=== PATIENT | male | born 1965 | race Caucasian/White ===

== ENCOUNTER 2023-06-23 14:30 | Emergency (ER) | payer OTHER, SELFPAY ==
[2023-06-23 14:34] VITALS: BP 171/98
[2023-06-23 14:51] LABS: % Basophils 0.8 % (0-2); % Eosinophils 1.6 % (0-6); % Immature Granulocytes 0.2 % (0-0.5); % Lymphocytes 27.5 % (20.5-51.1); % Monocytes 5.7 % (1.7-9.3); % Neutrophils 64.2 % (42.2-75.2); Absolute Basophils 0.1 10^3/uL (0-0.2); Absolute Eosinophils 0.1 10^3/uL (0-0.7); Absolute Lymphocytes 1.7 10^3/uL (1.2-3.4); Absolute Monocytes 0.4 10^3/uL (0.1-0.6); Absolute Neutrophils 3.9 10^3/uL (1.4-6.5); Hematocrit 43.2 % (39.0-52.0); Mean Corp Hgb Conc. 34.7 g/dL (33.0-37.0); Mean Corpuscular Hgb 31.3 pg (27.0-31.0); Mean Platelet Volume 9.5 fL (7.4-10.4); Nucleated Red Blood Cells % 0 % (-); Platelet Count 198 10^3/uL (130-400); Red Cell Dist. Width 12.6 % (11.5-14.5); White Blood Cell Count 6.1 10^3/uL (4.8-10.8)
[2023-06-23 15:03] LABS: ALT (SGPT) 52 U/L (0-50); AST (SGOT) 117 U/L (17-59); Albumin 4.7 g/dl (3.5-5.0); Alkaline Phosphatase 56 U/L (38-126); Blood Urea Nitrogen 14 mg/dl (9-20); Calcium 9.3 mg/dl (8.4-10.2); Carbon Dioxide 20 mmol/L (22-30); Chloride 110 mmol/L (98-107); Glucose 109 mg/dl (70-99); Potassium 4.1 mmol/L (3.5-5.1); Sodium 137 mmol/L (135-145); Total Bilirubin 0.3 mg/dl (0.2-1.3); Total Protein 7.2 g/dl (6.3-8.2); eGFR > 60.00
[2023-06-23 15:15] LABS: Troponin I < 0.012 ng/ml
--- NOTE | 2023-06-23 15:51 | ED.GENMED ---
History of Present Illness
General
Chief Complaint: Chest Pain
Source: patient
Exam Limitations: none
Time Seen by Provider: 06/23/23 15:50
Nursing documentation reviewed up to this point in time: agreed with
Travel History
Have you had any contact with someone who has COVID-19?: No
Do you have any symptoms of coronavirus? Fever > 100 degrees, chills, cough, shortness of breath, sore throat, loss of taste or smell, muscle aches, or headache?: No
History of Present Illness
History of Present Illness:
57-year-old female with history of colon cancer with resection and colostomy 02/2020, otherwise no significant past medical history presents stating for the past 5 days he has had intermittent pain in the left arm and numbness in the 3 middle
fingers of his left hand. Today he noted pain in the left side of his neck. No recollection of overuse or injury.
Between 1 and 2 PM today while driving he felt left upper chest pressure and felt lightheaded to the point where he thought he might have to dross puller but did not. He has had several of these episodes.
He states he feels a little pressure in the left upper chest during this initial encounter, non radiating, not associated with left arm pain
Has had no N/V
His sister is at bedside and they both admit that he has been under a tremendous amount of stress from work the past few months.
He also states for the past month he has been short of breath on exertion such as going up a flight depths.
2 weeks ago he had pain just medial to his left shoulder blade, saw PCP at [facility] and had a chest x-ray which was normal.
His tennis court attendant is Dr. Chappell and he has seen him in the last 6 months with no issues.
Past History
Past History
ED Past Medical History: Cancer (colon CA)
ED Past Surgical History: Bowel resection
Social History
Tobacco: Non-smoker
Alcohol: None
Personal:
Living: with family
Employment: Employed
Family History
Family History: Other (Mother age 51 of lung CA Father alive had 4 bypass in his 60's Brother in mid 50's w VT then 2 subsequent VT's, heavy smoker. still alive)
Review of Systems
Review of Systems
Allergies reviewed?: Yes
All Other Systems: ROS reviewed and negative except as documented in HPI and ROS
Constitutional: Denies fever
Respiratory: Denies cough or trouble breathing (feels SOB climbing stairs past month)
Cardiac: Reports chest pain; Denies diaphoresis, palpitations or syncope
ABD/GI: Reports other (colostomy with no change in stools); Denies abdominal pain, nausea, diarrhea, bloody stools, black stools or anorexia
: Denies dysuria or difficulty voiding
Musculoskeletal: Reports neck pain (left neck pain noted yesterday); Denies edema or back pain
Skin: Reports no symptoms
Neurological: Reports no symptoms
Psychiatric: Reports anxiety (admits to being extremely stressed)
Phy Exam
Physical Exam
Physical Exam:
GENERAL: No acute distress. A&Ox3.
CONSTITUTIONAL: Afebrile.
EYES: clear, conjunctivae normal
Neck: Supple
ENMT: moist mucus membranes, Pharynx nl
RESPIRATORY: Regular respirations, nonlabored, lungs clear.
CARDIOVASCULAR: Regular rate and rhythm, no murmurs, no rubs.
GI: Soft, nontender, normal BS
MUSCULOSKELETAL: No spinal bony tenderness. Mild left lateral neck ST tenderness to palpation, full ROM. Immediately tender to palpate over the mid left trapezius muscle just medial to the scapula. This is a trigger point. Mild tenderness to
palpation of left forearm muscle, full ROM of LUE. Moves with ease. Well perfused.
SKIN: Warm, dry, pink
PSYCH: Normal mood and affect. Well kept, interactive and appropriate
NEUROLOGIC: Awake, alert and oriented. No focal neurological deficits. Strength equal throughout.
Scores
Heart Score for Chest Pain Patients
STEMI patient?: Not applicable
Course
Orders/Labs/Results
Orders:
Orders
06/23/23 14:31
EKG [Electrocardiogram (*1)] Urgent
Reason for Study: Chest Pain
EKG- Treatment ONCE
06/23/23 14:44
Complete Blood Count/With Diff Urgent
Comprehensive Metabolic Panel Urgent
Troponin I Urgent
06/23/23 16:17
Cervical Spine 4 or 5 Vw [CR Cervical Spine 4 Or 5 Vw] Urgent
Comment:
Reason For Exam: left neck pain with LUE radiculopathy
06/23/23 17:08
EKG [Electrocardiogram (*1)] Urgent
Reason for Study: Chest Pain
EKG- Treatment ONCE
06/23/23 18:18
Troponin I Urgent
06/23/23 19:10
Cyclobenzaprine HCl [Flexeril] 10 mg PO NOW STA
Abnormal Lab Results
06/23/23
14:44
MCH 31.3 H pg
(27.0-31.0)
Chloride 110 H mmol/L
(98-107)
Carbon Dioxide 20 L mmol/L
(22-30)
Glucose 109 H mg/dl
(70-99)
AST 117 H U/L
(17-59)
ALT 52 H U/L
(0-50)
06/23/23 14:44
06/23/23 14:44
Vital Signs
Initial and Last Documented VS:
Initial Vital Signs
Temp Pulse Resp BP Pulse Ox
98.0 F 77 18 171/98 98
06/23/23 14:34 06/23/23 14:34 06/23/23 14:34 06/23/23 14:34 06/23/23 14:34
Last Documented Vital Signs
Temp Pulse Resp BP Pulse Ox
98.0 F 59 16 145/92 98
06/23/23 14:34 06/23/23 19:00 06/23/23 19:00 06/23/23 19:00 06/23/23 14:34
MDM/Problems Addressed
Differential Diagnosis Includes:
Cervical radiculopathy left arm, cervical DJD
ACS, GERD, anxiety/stress, musculoskeletal
MDM/Problems Addressed:
57-year-old female with history of colon cancer with resection and colostomy 02/2020, otherwise no significant past medical history presents stating for the past 5 days he has had intermittent pain in the left arm and numbness in the 3 middle
fingers of his left hand. Today he noted pain in the left side of his neck. No recollection of overuse or injury.
Between 1 and 2 PM today while driving he felt left upper chest pressure and felt lightheaded to the point where he thought he might have to dross puller but did not. He has had several of these episodes.
He states he feels a little pressure in the left upper chest during this initial encounter, non radiating, not associated with left arm pain
Has had no N/V
His sister is at bedside and they both admit that he has been under a tremendous amount of stress from work the past few months.
He also states for the past month he has been short of breath on exertion such as going up a flight depths.
2 weeks ago he had pain just medial to his left shoulder blade, saw PCP at [facility] and had a chest x-ray which was normal.
His tennis court attendant is Dr. Chappell and he has seen him in the last 6 months with no issues.
1600 p.m.
EKG: NSR
CBC normal
CMP with no clinically significant abnormality
Troponin WNL
7:00 PM
Cervical spine radiology report read: IMPRESSION:
Mild multilevel degenerative changes of the cervical spine without evidence for acute fracture.
Final diagnosis: Left neck strain, cervical radiculopathy to left arm.
Trigger point left trapezius muscle.
Emotional stress
Prescription for Flexeril sent to his pharmacy.
*EKG
EKG Intrepretation Date: 06/23/23
Interpretation: normal
Rate: normal
Rhythm: sinus
[place]: normal axis
Interval: normal interval
QRS Pattern: normal QRS
Ischemia: no ischemia
*Critical Care Note
Total Time (30-74mins, 75-104mins- exclusive of procedures): Not Applicable
ED Attending Note
-
Portions of this chart may have been created with voice recognition software.� Occasional wrong word or��sound alike� substitutions may have occurred due to the inherent limitations of voice recognition software.
Discharge Plan
Departure
Patient Disposition: Home (Routine Discharge)
Date of Disposition: 06/23/23
Time of Disposition: 19:09
Patient with high blood pressure during this ER visit?: No
Condition: Good
Discharge Problem:
Stress, Atypical chest pain, Trigger point of left shoulder region, Cervical radiculopathy
Instructions: Chest Pain That Is Not Caused by the Heart (DC), Muscle Spasms (DC), Radiculopathy (DC), Relaxation Techniques, Stress
Prescriptions:
New
cyclobenzaprine 10 mg tablet
10 mg PO TID PRN (Reason: muscle tightness, pain) Qty: 30 0RF
Referrals:
Greg Silva MD [Family Provider] - As needed
Activity Restrictions/Additional Instructions:
As we discussed, I sent a prescription to your pharmacy for a muscle relaxant for your neck and upper back. It can make you sleepy and slow the reflexes so don't drive or operate any machinery within 8 hours of taking it. May want to save it for
bedtime.
No sign of a heart attack or anything worrisome in your workup here today.
Anything to minimize your stress level will be beneficial.
Interventions
Interventions:
*Risk Screen - Suicide Last Done: 06/23/23 19:24
*General Assessment Last Done: 06/23/23 19:24
*Neglect/Abuse Screening Last Done: 06/23/23 19:24
ED- Fall Risk Assessment Last Done: 06/23/23 19:24
*ED COVID-19 Vaccine History Last Done: 06/23/23 14:34
*Nursing Disposition Last Done: 06/23/23 19:24
ED- Cardiac Assessment Last Done: 06/23/23 18:43
Discharge Date and Time
Discharge Date/Time: 06/23/23 19:25
Print Language: PAK[place]
[2023-06-23 15:57] VITALS: BP 146/96
[2023-06-23 18:24] VITALS: BP 128/85
[2023-06-23 18:58] LABS: Troponin I < 0.012 ng/ml
[2023-06-23 19:00] VITALS: BP 145/92
[2023-06-23] MEDS: FLEXERIL 10 MG PO (19:16)
== END 2023-06-23 19:25 | disposition home or self-care (01) ==
LOC: EMR 14:30
PROVIDERS: Emergency Medicine; Registered Nurse; EMERGENCY PHYSICIAN Student in an Organized Health Care Education/Training Program; FAMILY PHYSICIAN Family Medicine
DX: S16.1XXA Strain of muscle, fascia and tendon at neck level, initial encounter (principal); M47.22 Other spondylosis with radiculopathy, cervical region; R07.89 Other chest pain; R06.02 Shortness of breath; R42 Dizziness and giddiness; M79.602 Pain in left arm; Z73.3 Stress, not elsewhere classified; F41.9 Anxiety disorder, unspecified; Z85.038 Personal history of other malignant neoplasm of large intestine; Z98.0 Intestinal bypass and anastomosis status; Z93.3 Colostomy status
CPT/HCPCS: 99284; 72050; 80053; 84484; 85025; 93005